=== PATIENT | female | born 1950 | race Caucasian/White ===

== ENCOUNTER 2022-04-02 09:37 | Outpatient (CLI) | payer MEDICARE, SELFPAY ==
[2022-04-02 15:10] LABS: Albumin* 3.8 g/dL (3.3-5.0); Chloride* 100 mmol/L (96-114)
[2022-04-02 15:11] LABS: Potassium* 4.6 mmol/L (3.6-5.1); Sodium* 138 mmol/L (135-149)
[2022-04-02 15:13] LABS: Alanine Aminotransferase* 17 U/L (4-35); Alkaline Phosphatase* 124 U/L (40-150); Aspartate Amino Transferase* 31 U/L (12-35); Bilirubin Total* 0.5 mg/dL (0.1-1.5); Blood Urea Nitrogen* 26 mg/dL (7-30); Carbon Dioxide* 31 mmol/L (20-32); Cholesterol* 185 mg/dL (90-199); Creatinine* 0.6 mg/dL (0.5-1.5); Estimated Glomerular Filt Rate 95 ml/min; Glucose* 120 mg/dL (60-115); Total Protein* 7.6 g/dL (6.0-8.3); Triglycerides* 45 mg/dL (40-149)
[2022-04-02 15:14] LABS: Calcium* 9.4 mg/dL (8.4-10.6); HDL Cholesterol* 80 mg/dL (>=50); LDL Cholesterol Calculated 96 mg/dL (<100)
[2022-04-02 15:19] LABS: Vitamin D 25 Hydroxy* 50 ng/mL (30-80)
[2022-04-02 15:25] LABS: NT Pro B Type NatriureticPept* 432 pg/mL
[2022-04-02 15:32] LABS: Creatinine Urine 93.6 mg/dL
[2022-04-02 15:36] LABS: Microalbumin Creatinine Ratio 60 mg/g (0-30); Microalbumin Urine 6 mg/dL
[2022-04-02 16:02] LABS: Vitamin B12* 633 pg/mL (243-894)
== END 2022-04-02 09:38 | disposition home or self-care (01) ==
PROVIDERS: Visit Provider Family Medicine
DX: E66.01 Morbid (severe) obesity due to excess calories (principal); R03.0 Elevated blood-pressure reading, without diagnosis of hypertension; R53.83 Other fatigue; R63.4 Abnormal weight loss; Z13.6 Encounter for screening for cardiovascular disorders; Z13.1 Encounter for screening for diabetes mellitus
CPT/HCPCS: 80053; 80061; 82043; 82306; 82570; 82607; 83880; 84443

== ENCOUNTER 2022-04-05 08:42 | Outpatient (CLI) | payer MEDICARE, SELFPAY ==
--- NOTE | 2022-04-05 09:00 | CRLHL7_ITS ---
For Patients: As a result of the Century Cures Act, medical imaging exams and procedure reports are released immediately into your electronic medical record. You may view this report before your referring provider. If you have questions, please contact your health care provider. Indication: UNINTENDED WEIGHT LOSS AROUND 30 LBS IN LAST COUPLE MONTHS Technique: Postcontrast CT chest, abdomen and pelvis. Oral water. 63 cc Isovue 370 intravenous contrast. Please note that all CT scans at this facility use dose modulation, iterative reconstruction, and/or weight-based dosing when appropriate to reduce radiation dose to as low as reasonably achievable. Comparison: Chest x-ray 04/01/2022 Findings: In the chest, multiple cavitary nodules are present in both upper lobes measuring up to 1.3 cm. Other non cavitary nodules are present including a 1.2 cm nodule in the right upper lobe, 4/22 and 8.3 millimeter nodule in the superior segment of the left lower lobe, 4/35. he bronchiectatic changes are present within the inferior right middle lobe, inferior lingula and both lower lobes. Patchy reticulonodular densities are present within the periphery of both lower lobes, left greater than right. No pleural effusion. No pneumothorax. Mildly prominent right hilar lymph node measuring 1.4 cm. Also mildly prominent precarinal lymph node measuring 1.4 cm. Dense breast tissue appears normal. Bilateral axillary lymph nodes measure less than 1 cm. No fracture is present. Degenerative changes noted. In the abdomen, there is no intrahepatic mass. The gallbladder is normal. Mild periportal edema incidentally noted. No calcified gallstones. Common bile duct appears normal. Normal pancreas. The spleen is normal. Normal adrenal glands. The left renal pelvis is somewhat poorly defined. Stone material is present centrally within the left kidney measuring up to 6 millimeters. There is a simple cyst in the upper pole of the right kidney measuring 1.3 cm. A right parapelvic cyst is noted measuring 2.2 cm. Simple cortical cyst lateral left kidney measuring 1.1 cm. Atherosclerotic disease. No aneurysm. No upper abdominal adenopathy. In the pelvis, there are degenerative changes within the lower lumbar spine with multilevel degenerative spondylolisthesis. No fracture or suspicious lesion. The bladder is normal. Probable exophytic fibroid arising from the right side of the uterus measuring 2.2 cm. Adjacent hyperdensity noted measuring 1.6 cm. No bowel obstruction or free air. No free fluid or abscess. No adenopathy. Impression: Multiple cavitary and non cavitary nodules in both lungs with an upper lung zones predilection, measuring up to 1.3 cm. Differential diagnosis is broad and includes cavitating pulmonary metastasis, infection, granulomatous with polyangiitis, rheumatoid nodules or perhaps congenital. CT-PET and/or pulmonary consultation may be helpful for further evaluation. Probable uterine fibroids. Further evaluation with pelvic ultrasound may be useful. Ill-defined left renal pelvis may be secondary to adjacent stone material resulting in mild inflammation/pyelitis, however, cannot exclude transitional cell carcinoma. Nonobstructing stone lower pole right kidney also noted. Please note that all CT scans at this facility use dose modulation, iterative reconstruction, and/or weight-based dosing when appropriate to reduce radiation dose to as low as reasonably achievable. Dictated by Rogelio Soto MD @ 04/05/2022 1:17:36 PM (Electronically Signed)
== END 2022-04-05 08:43 | disposition home or self-care (01) ==
LOC: CT 08:44
PROVIDERS: PCP Family Medicine; Visit Provider Family Medicine
DX: R63.4 Abnormal weight loss (principal); R91.8 Other nonspecific abnormal finding of lung field; N20.0 Calculus of kidney
CPT/HCPCS: 71260; 74177; Q9967

== ENCOUNTER 2022-09-21 08:25 | Outpatient (CLI) | payer MEDICARE, SELFPAY ==
[2022-09-21 09:24] LABS: Basophils Absolute Auto 0.03 K/uL (0.00-0.30); Basophils Percent Auto 0.5 % (0.0-3.0); Eosinophils Absolute Auto 0.18 K/uL (0.00-0.50); Eosinophils Percent Auto 2.9 % (0.0-7.0); Hematocrit 40.3 % (33.0-51.0); Hemoglobin* 12.6 gm/dL (12.0-16.0); Immature Granulocytes Abs Auto 0.01 K/uL (0.00-0.30); Immature Granulocytes Pct Auto 0.2 %; Lymphocytes Absolute Auto 1.66 K/uL (0.90-2.90); Mean Corpuscular HGB Conc 31 gm/dL (32-36); Mean Corpuscular Hemoglobin 30 pg (26-34); Mean Corpuscular Volume 95 fL (80-100); Monocytes Percent Auto 8.8 % (0.0-11.0); Neutrophils Absolute Auto 3.73 K/uL (1.7-7.0); Neutrophils Percent Auto 60.6 % (42.0-72.0); Platelet Count* 201 K/uL (140-440); RDW Coefficient of Variation % 12.5 % (11.5-15.5); Red Blood Count 4.24 m/uL (4.00-5.20); White Blood Count* 6.15 K/uL (4.50-11.00)
[2022-09-21 09:31] LABS: Slide Review Reflex No
[2022-09-21 11:05] LABS: Erythrocyte SedimentationRate* 29 mm/hr (2-20)
[2022-09-22 20:27] LABS: Rheumatoid Factor 80 IU/mL (0-14)
[2022-09-24 04:22] LABS: ANCA IFA Pattern None Detected (None Detected); ANCA IFA Titer <1:20 (<1:20); Myeloperoxidase (MPO) Ab, IgG 0 AU/mL (0-19); Serine Proteinase 3 Ab IgG 0 AU/mL (0-19)
[2022-09-25 00:36] LABS: Immunoglobulin E 50 kU/L (<=214)
== END 2022-09-21 08:26 | disposition home or self-care (01) ==
LOC: LAB 08:27
PROVIDERS: PCP Family Medicine; Visit Provider Internal Medicine
DX: R06.02 Shortness of breath (principal); R91.1 Solitary pulmonary nodule
CPT/HCPCS: 36415; 82785; 83516; 85025; 85651; 86200; 86255; 86331; 86431; 86612; 86635; 86698

== ENCOUNTER 2022-10-25 07:30 | Outpatient (CLI) | payer MEDICARE, SELFPAY ==
--- NOTE | 2022-10-25 08:00 | CRLHL7_ITS ---
For Patients: As a result of the Century Cures Act, medical imaging exams and procedure reports are released immediately into your electronic medical record. You may view this report before your referring provider. If you have questions, please contact your health care provider. Indication: solitary pulmonary nodule, cough, cavitary nodules Technique: Noncontrast CT chest Please note that all CT scans at this facility use dose modulation, iterative reconstruction, and/or weight-based dosing when appropriate to reduce radiation dose to as low as reasonably achievable. Comparison: 08/06/2022 Findings: The cavitary nodule within the right upper lobe on the previous study is now solid, measuring 1.1 cm cavitary nodules within the left upper lobe remains similar measuring up to 9 millimeters. Other solid nodular densities present throughout both lungs remain similar. There is improved aeration within the anterior aspect of the right middle lobe. No pleural effusion. No pneumothorax. No pulmonary edema. Atherosclerotic changes. Enlarged precarinal lymph node measures 1.5 cm, similar to the prior study. Coronary artery calcifications. Upper abdomen appears similar. No vertebral body compression fracture. Impression: Nodule within the right upper lobe was previously cavitated is now solid, possibly reflecting post treatment change. Other cavitary nodules within the left upper lobe are similar in size and morphology. Other solid nodules bilaterally are also similar. Improved aeration within the right middle lobe. Stable mediastinal lymph nodes. Please note that all CT scans at this facility use dose modulation, iterative reconstruction, and/or weight-based dosing when appropriate to reduce radiation dose to as low as reasonably achievable. Dictated by Rogelio Soto MD @ 10/25/2022 9:56:49 AM (Electronically Signed)
== END 2022-10-25 07:31 | disposition home or self-care (01) ==
LOC: CT 07:31
PROVIDERS: PCP Family Medicine; Visit Provider Internal Medicine
DX: R91.1 Solitary pulmonary nodule (principal); R05.9 Cough, unspecified; R91.8 Other nonspecific abnormal finding of lung field
CPT/HCPCS: 71250

== ENCOUNTER 2023-02-07 08:38 | Outpatient (CLI) | payer MEDICARE, SELFPAY | END 2023-02-07 08:39 | disposition home or self-care (01) | PROVIDERS: PCP Family Medicine; Visit Provider Family Medicine | DX: I10 Essential (primary) hypertension (principal); R63.4 Abnormal weight loss | CPT/HCPCS: 80053; 80061; 82043; 82570; 84443 ==

== ENCOUNTER 2023-03-13 12:35 | Outpatient (CLI) | payer MEDICARE, SELFPAY ==
--- NOTE | 2023-03-13 13:00 | CRLHL7_ITS ---
For Patients: As a result of the Century Cures Act, medical imaging exams and procedure reports are released immediately into your electronic medical record. You may view this report before your referring provider. If you have questions, please contact your health care provider. DXA BONE MINERAL DENSITY STUDY Reason for exam: Screening for osteoporosis. Current height (in): 61.0. Weight (lb): 132.0. Menopause age: 53. Ethnicity: White. 1. Have you had a previous hip or vertebral fracture? No. 2. Have you had any fractures during your adult life which did not result from significant trauma (e.g., auto accident)? No. 3. Did either of your parents have a hip fracture? No. 4. Do you smoke? No. 5. Have you ever taken Glucocorticoids? No. 6. Do you have rheumatoid arthritis? Yes. 7. Do you have secondary osteoporosis? No. 8. Do you drink 3 or more alcoholic drinks per day? No. 9. Are you being treated for osteoporosis? No. 10. Have you ever taken any of the following medications: Actonel, Evista, Fosamax, Miacalcin, Reclast, Boniva, Forteo, HRT (i.e. estrogen/hormone therapy), Protelos, Prolia, Vitamin D, Calcium, other ??? please specify. ANSWER: Yes, vitamin D. 11. Do you have any of the following medical conditions: Anorexia or bulimia, asthma or emphysema, end stage renal disease, hyperparathyroidism, any seizure disorders, cancer, inflammatory bowel diseases, hysterectomy, other ??? please specify. ANSWER: No. 12. What was your maximum height (inches)? 62. 13. Do you perform weight bearing exercise regularly? No. 14. Do you regularly consume dairy products? Yes. 15. Do you drink caffeinated beverages? Yes. 16. At what age did your period start? 9. 17. Are you premenopausal? No. 18. How many full term pregnancies have you had? Zero. 19. Have you ever missed your period for more than 6 months in a row (not including or menopause)? No. TECHNIQUE: Bone mineral density study was performed using the Syn[employer]. FINDINGS: The results of the study expressed as bone mineral density (BMD) are as follows: Lumbar spine L1 to L4: BMD: 0.954 g/cm2. T-score: -0.8. Z-score: 1.5. Neck Left: BMD: 0.525 g/cm2. T-score: -2.9. Z-score: -0.9. Right: BMD: 0.549 g/cm2. T-score: -2.7. Z-score: -0.7. Total Left: BMD: 0.564 g/cm2. T-score: -3.1. Z-score: -1.4. Right: BMD: 0.598 g/cm2. T-score: -2.8. Z-score: -1.1. IMPRESSION: Osteoporosis. Rogelio Soto M.D. Diagnostic Radiologist [email or web address] SHAY/antoine / be/Dictated by: Rogelio Soto MD @ 03/13/2023 1:25:00 PM (Electronically Signed)
--- NOTE | 2023-03-13 14:00 | CRLHL7_ITS ---
For Patients: As a result of the Century Cures Act, medical imaging exams and procedure reports are released immediately into your electronic medical record. You may view this report before your referring provider. If you have questions, please contact your health care provider. INDICATION: HYPERTENSION TECHNIQUE: Grayscale, color Doppler and power Doppler ultrasound of the kidneys and renal arteries performed. COMPARISON: None available FINDINGS: BILATERAL RENAL ARTERY DUPLEX ULTRASOUND ABDOMINAL AORTA: Peak systolic velocity = 128 cm/s. No aortic aneurysm. RIGHT KIDNEY: 10.4 cm in length. There is no hydronephrosis. Simple cyst upper pole measures 1.7 x 1.2 x 1.6 cm. 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 No abnormal velocities. Renal artery to aortic peak systolic velocity ratio = 0.9 Resistive indices: 0.8 Renal vein = patent LEFT KIDNEY: 9.1 cm in length. There is no hydronephrosis. Peak systolic velocity = 167 cm/second Renal artery to aortic peak systolic velocity ratio = 1.3 Resistive indices: 0.8 Renal vein = patent IMPRESSION: No evidence of significant renal artery stenosis. Mildly elevated resistive indices bilaterally suggesting intrinsic renal disease. No hydronephrosis. Dictated by Rogelio Soto MD @ 03/13/2023 3:59:49 PM (Electronically Signed)
== END 2023-03-13 12:36 | disposition home or self-care (01) ==
LOC: RAD 12:36
PROVIDERS: PCP Family Medicine; Visit Provider Family Medicine
DX: I10 Essential (primary) hypertension (principal); N28.1 Cyst of kidney, acquired; Z13.820 Encounter for screening for osteoporosis; M81.0 Age-related osteoporosis without current pathological fracture; N28.89 Other specified disorders of kidney and ureter; R80.9 Proteinuria, unspecified
CPT/HCPCS: 76775; 77080; 93975

== ENCOUNTER 2023-08-26 07:56 | Outpatient (CLI) | payer MEDICARE, SELFPAY | END 2023-08-26 07:57 | disposition home or self-care (01) | LOC: RAD 07:57 | PROVIDERS: PCP Family Medicine; Visit Provider Family Medicine | DX: R60.0 Localized edema (principal); I51.7 Cardiomegaly; I35.1 Nonrheumatic aortic (valve) insufficiency; I34.0 Nonrheumatic mitral (valve) insufficiency | CPT/HCPCS: 93306 ==

== ENCOUNTER 2023-10-17 07:30 | Outpatient (RCR) | payer MEDICARE, SELFPAY ==
[2023-08-29 09:00] VITALS: BMI 24.7
[2023-08-29 12:26] VITALS: BMI 24.7
--- NOTE | 2023-08-29 12:27 | OT.OPLE2 ---
OT Outpatient Lymphedema Eval* OT Outpatient Lymphedema Eval* Start: 08/29/23 09:00 Freq: Status: Active Protocol: Document 08/29/23 09:00 GILBERT (Rec: 08/29/23 12:25 GILBERT [id number]) E-signed By Liliam Payton, OTR/L, CLT OT Outpatient Evaluation Details Type Type Eval Complexity Medium Insurance Information Insurance Information Insurance Information Blue [employer], Medicare B Height and Weight Height Height 157.48 cm Weight Weight 61.235 kg Weight Measurement Method Standing Scale BMI Body Mass Index (kg/m?) 24.7 BMI Classification Normal OT OP Lymphedema Evaluation Current Condition/Medical Diagnosis Referring Provider Dr. Elizabeth Lozano Medical Diagnoses I89.0 Lymphedema Treatment Diagnosis I89.0 Lymphedema R26.81 Unsteady on Feet Date Of Onset Chronic, >10 years Medical Contraindications HTN,Arthritis Medical History Medical History HTN,Fall Risk Medical History Comments I89.0 Lymphedema R09.82 - Postnasal drip M06.9 - Rheumatoid arthritis, unspecified F43.21 - Adjustment disorder with depressed mood Osteoporosis (Acute) last dexa was Feb 2023 M81.0 - Age-related osteoporosis without current pathological fracture I10 - Essential (primary) hypertension Pulmonary cavitary lesion ( Acute) [place] Lung J98.4 - Other disorders of lung (ICD-10) R60.0 - Localized edema (ICD- 10) R05.9 - Cough, unspecified ( ICD-10) Medications Medications acetaminophen (Tylenol) 325 mg PO ONCE PRN alendronate 70 mg PO QWEEK fluticasone propionate 50 mcg/ actuation (Flonase Allergy Relief) 1 spray intranasal QDAY PRN latanoprost 0.005% 1 drp ophthalmic (eye) QDAY losartan 50 mg PO QDAY timolol 0.5% 1 drp ophthalmic (eye) BID Contraindications Contraindications General Family History Family History of Lymphedema Yes Family History of Lymphedema Comments Mother, Sister and Brother Current Work Status Current Work Status Retired Subjective Subjective Patient is a 73-year-old female presenting to the clinic for a Lymphedema Evaluation. Patient has never been seen for this diagnosis prior and reports her onset of symptoms beginning >10 years ago w/o known cause (no previous trauma/surgery or cancer dx). Living Situation Current Living Situation sister Current Living Situation Comments Lives with her sister Marleny in [place] Patient's has recently been placed in [facility] Patient Difficulties Difficulties With Any Of The Following Walking,Dressing,Reaching Feet & Toes,Bathing/Showering, Preparing Meals,Sleeping In Bed Patient Difficulties Comments Patient takes a full shower 1x /week (Independently) Sister Marleny is willing and able to help with skin hygiene (Patient lives with her younger sister) Impairments Impairments Loss of Mobility,Difficulties With ADLs,Limb Heaviness,Poor Clothing Fit Problem List Problem List Limited Knowledge of Lymphedema Treatment/Condition /Precautions,Limited Knowledge of Skin Care & Infection Precautions,Significant Risk For Infection For Lymphedema Related Complications,Does Not Have a HEP,Does Not Know How To Bandage For Limb Reduction, Does Not Have Appropriate Compression Garments For LT Management,Presents With Increased Fall Risk Secondary To Lymphedema,Presents With Impaired Mobility/ROM, Financial Insecurity Exercise History Does Patient Exercise Regularly Yes Pain Pain Yes ROM/Strength ROM/Strength Comments Patient ambulates with a FWW for long distances or with a SPC Previous Treatment Previous Treatment For Swelling/ Elevation Lymphedema Previous Treatment/Current Home Program Patient's legs do not respond to elevation (no changes in fluid with elevation). Compression History Does Patient Currently Wear Compression No During Daytime Does Patient Currently Wear Compression No At Night Current Swelling (Location/Pitting/Texture) Pitting Scale: 0 = No pitting 1+ Tissue returns to normal almost immediately 2+ Tissue returns after 15-30 seconds 3+ Tissue returns after 1-1/2 minutes 4+ Tissue returns after 2-3 minutes N/A Tissue no longer pits due to induration Tissue texture: Soft or indurated Clinical Presentation Area L LE worse than R LE (see grid for measurements) L LE anterior franklin has heavy amount of hyperkeratosis with 3+ pitting at the ankle then heavy/thick fibrosis moving proximally. Tissue no longer pits due to induration. Skin Color is normal at the foot, then moves to a pink appearance and darker pink proximal. Some weeping at the anterior franklin of the L LE with multiple papilloma's. Temperature is normal. R LE has 3+ pitting edema at the ankle then just proximal to the ankle skin has very little mobility and turns fibrosis with hyperkeratosis on the anterior portion of the R LE between the ankle and knee. Positive for Lymphorrhea with multiple papilloma's ( less than the L LE). Color is normal in the foot with Hemosiderin staining moving proximal then normal coloring beginning at the knee. Skin Changes Hemosiderin Staining, Hyperkeratosis,Lymphorrhea, Papillomas,Stasis Dermatitis, Fibrosis,Limited Skin Mobility Skin Changes Comments Skin weeps bilaterally Positive Stemmer's Sign Yes Capillary Refill Slow Type of Swelling Secondary Staging Staging Stage 3 Circumferential Measurements Lower Extremity Right Lower Extremity Great Toe (in cm) 8.1 MTP (in cm) 23.2 Arch (in cm) 24 Distance Between MTP's and Arch 5 Circumference Measurement Calcaneus (in cm) 31 Distance Between Arch and Calcaneus 5 Circumference Measurement Ankle (in cm) 34 10 cm above Calcaneus Measurement 43.1 20 cm above Calcaneus Measurement 43.3 30 cm above Calcaneus Measurement 42.5 40 cm above Calcaneus Measurement 55 Total Girth in cm 304.2 LE Volume A 221.62 LE Volume B 302 LE Volume C 1102.07 LE Volume D 1485.11 LE Volume E 1464.59 LE Volume F 1901.57 Lower Extremity Volume Total in cm 6,476.96 Left Lower Extremity Great Toe (in cm) 8.2 MTP (in cm) 23 Arch (in cm) 24.5 Distance Between MTP's and Arch 5 Circumference Measurement Calcaneus (in cm) 32 Distance Between Arch and Calcaneus 5 Circumference Measurement Ankle (in cm) 32 10 cm above Calcaneus Measurement 40 20 cm above Calcaneus Measurement 48.5 30 cm above Calcaneus Measurement 52.2 40 cm above Calcaneus Measurement 56 Total Girth in cm 316.4 LE Volume A 224.50 LE Volume B 319.40 LE Volume C 1035 LE Volume D 1562.96 LE Volume E 2018.29 LE Volume F 2330.04 Lower Extremity Volume Total in cm 7,490.19 Assessment Assessment Therapist completes evaluation with pt per dx above, patient has never been seen for this diagnosis prior. During evaluation, OTR/L, CLT educates patient (and her sister who was present) in evaluation, treatment process, diagnosis treatment plan and goals with patient, who agrees to treatment plan for CDT including using short stretch bandages to reduce the size of bilateral LE's and loosen the fibrosis with Manual Lymph Drainage and teaching an individualized HEP. Pt was educated on the physiology/ pathophysiology of lymphatic system, and treatment protocol recommended specifically for Complete Decongestive Therapy( CDT) and explained each of the components. During treatment, Pt was educated on signs/sx of potential sequelae of unresolved/complicated lymphedema, how to address such issues, daily skin care and precautions to help prevent infections & exacerbation of lymphedema. Shown handouts on Lymph system and discussed clustered sites in the body where Lymph nodes are more concentrated (focus points). Therapist took measurements of bilateral LE's and explained to patient what would occur in the next 4 sessions. Recommended patient to bring in larger shoes and loose clothing during treatment. Patient and her sister (Marleny) engaged in session, asking appropriate questions and very appreciative of education provided. Patient has a f/u apt with her PCP next week 09/03/23 to review her Vascular apt results. Patient Goals Patient Goals Patient wishes to have improvement to her skin and decrease the amount of fluid in bilateral LE's so that she can walk with better ease and fit into her clothing better Short Term Goals (# of Weeks) 6 Click To Default Short Term Goals Standard Goals Short Term Goals Goal: Patient and or caregiver will understand lymphedema precautions to decrease risk of infection and further lymphedema related complications Goal: Patient will develop a tolerance for wearing multi- layer, short stretch bandages between treatment sessions to facilitate limb decongestion Goal: Patient will experience decreased pitting edema in order to improve tissue health and decrease risk for infection/cellulitis Goal: Patient will perform HEP with minimal assistance in order to improve lymphatic flow and venous return Goal: Patient will perform self MLD protocol with minimal assistance to help reduce swelling and improve ROM and mobility Senior Care Goals (# of Weeks) 12 Click To Default Senior Care Goals Standard Goals Senior Care Goals Goal: Patient and/or caregiver will be independent with short-stretch compression bandaging for continued volume reduction and prevention of recurrence Goal: Patient will experience increased ROM and mobility in order to improve safety and independence with transfers and mobility Goal: Patient will be independent with donning and doffing of compression garments which will enable regular daily garment wear Goal: Patient will achieve a reduction of cm from total measurements to enable functional improvements such as fitting into standard sized clothing and shoes, return to a prior level of functional mobility, improved balance, and reduced risk of falling. Goal: Patient and/or caregiver will be independent with HEP and lymphedema management to reduce risk for edema relapse and to reduce risk for infection Treatment Plan Treatment Plan Evaluation,Edema Control, Manual Therapy,Therapeutic Exercise,Therapeutic Activities,Self-Care/Home Management,Education Expected Frequency 1-2x Week Expected Duration 12+ Certification Certification Statement I Certify That: Therapy Services Provided, Therapy Plan Established, Therapy Plan Reviewed Certification Information Clinic ID # [id number] Initial Certification Date 08/29/23 Recertification Due Date 11/27/23 Provider Signature Required Yes Provider Signature Shows Agreement With POC & Medical Necessity Physician NPI Number Write NPI# Here Physician Comment/Change Comment or Changes Physician Signature & Date Requested Please Sign/Date Here
[2023-09-17 12:25] VITALS: BMI 24.7
[2023-09-19 15:42] VITALS: BMI 24.7
[2023-09-24 09:08] VITALS: BMI 24.7
[2023-09-26 09:18] VITALS: BMI 24.7
[2023-10-01 12:08] VITALS: BMI 24.7
[2023-10-03 10:16] VITALS: BMI 24.7
[2023-10-08 12:57] VITALS: BMI 24.7
[2023-10-10 10:10] VITALS: BMI 24.7
[2023-10-15 08:31] VITALS: BMI 24.7
[2023-10-17 07:25] VITALS: BMI 24.7
== END 2023-10-17 09:44 | disposition home or self-care (01) ==
PROVIDERS: PCP Family Medicine; Visit Provider Family Medicine
DX: R60.0 Localized edema (principal); Z51.89 Encounter for other specified aftercare
CPT/HCPCS: 97110; 97140; 97166; X5282

== ENCOUNTER 2024-06-11 10:05 | Outpatient (CLI) | payer MEDICARE, SELFPAY | END 2024-06-11 10:06 | disposition home or self-care (01) | PROVIDERS: PCP Family Medicine; Visit Provider Family Medicine | DX: I10 Essential (primary) hypertension (principal); J98.4 Other disorders of lung; M06.9 Rheumatoid arthritis, unspecified; Z11.59 Encounter for screening for other viral diseases | CPT/HCPCS: 80053; 80061; 82043; 82570; 82746; 86803 ==

== ENCOUNTER 2024-06-19 08:45 | Outpatient (CLI) | payer MEDICARE, SELFPAY ==
--- NOTE | 2024-06-19 09:00 | CRLHL7_ITS ---
For Patients: As a result of the Century Cures Act, medical imaging exams and procedure reports are released immediately into your electronic medical record. You may view this report before your referring provider. If you have questions, please contact your health care provider. INDICATION: Cavitary lesion. TECHNIQUE: CT chest without contrast. COMPARISON: 10/25/2022. FINDINGS: Lungs and pleura: Diffuse large airways thickening with areas of bronchiectasis and numerous scattered centrilobular nodular opacities, many of which reflect mucoid impaction and others branching tree-in-bud type morphology, consistent with an infectious/inflammatory process. Consider MAC. Overall, distribution, number and size of nodules is similar compared to October 2022, the few nodules at the right lung apex have decreased in size, including a 0.6 x 1.3 centimeter lesion at the right lung apex which previously measured 0.9 x 1.3 centimeters (series 3, image 115) as well as a 6 millimeter right upper lobe nodule that previously measured 9 millimeters (series 3 image 22). A 10 millimeter cavitary lesion at the left lung apex is unchanged in size but was previously solid (series 202 image 16). A 12 millimeter cavitary nodule in the left upper lobe demonstrates a slightly thinner wall than prior (series 2 image 18). Additional left upper lobe cavitary nodule measuring 11 millimeters is also similar in size compared to prior but demonstrates a slightly thinner wall. Heart and vasculature: Heart size is normal. Mild enlargement of the main pulmonary artery, suggestive of pulmonary arterial hypertension. Mild coronary artery calcification Lymph nodes/mediastinum: No mediastinal, hilar, or axillary adenopathy. Chest wall: No masses. Upper abdomen: Right renal cysts. Left nephrolithiasis. Bones: Mild thoracic spondylosis IMPRESSION: 1. Multiple cavitary nodules in the left upper lobe. One of the nodules is previously solid. Others demonstrate slightly thinner vann than in 202. Recommend continued surveillance. 2. Diffuse large airways thickening with areas of bronchiectasis, mucous plugging and branching tree-in-bud type micronodular opacities, compatible with a chronic infectious/inflammatory process such as MAC. F/U right apical nodular opacities have slightly decreased in size. Otherwise, size and distribution of nodules is similar compared to prior. Please note that all CT scans at this facility use dose modulation, iterative reconstruction, and/or weight-based dosing when appropriate to reduce radiation dose to as low as reasonably achievable. Dictated by Gustavo Peacock MD @ 06/22/2024 8:55:48 AM (Electronically Signed)
== END 2024-06-19 08:46 | disposition home or self-care (01) ==
LOC: CT 08:47
PROVIDERS: PCP Family Medicine; Visit Provider Family Medicine
DX: J98.4 Other disorders of lung (principal); I10 Essential (primary) hypertension; M06.9 Rheumatoid arthritis, unspecified
CPT/HCPCS: 71250